=== PATIENT | male | born 1990 | race Caucasian/White ===

== ENCOUNTER 2017-10-13 12:19 | Emergency (ER) | payer OTHER ==
[2017-10-13 12:19] VITALS: BMI 39.9
[2017-10-13 13:19] VITALS: BP 126/77; PULSE 95; RESP 18; TEMP 98.8; O2SAT 100
--- NOTE | 2017-10-13 13:42 | C.PDOC ---
Time Seen by Provider: 10/13/17 13:03 Chief Complaint (Nursing): Chest Pain Past Medical History Vital Signs: Last Vital Signs Temp 98.8 F 10/13/17 13:16 Pulse 95 H 10/13/17 13:16 Resp 18 10/13/17 13:16 BP 126/77 10/13/17 13:16 Pulse Ox 100 10/13/17 13:16 - Social History Hx Tobacco Use: No Hx Alcohol Use: No Hx Substance Use: No - Immunization History Hx Tetanus Toxoid Vaccination: No Hx Influenza Vaccination: No Hx Pneumococcal Vaccination: No ED Course And Treatment O2 Sat by Pulse Oximetry: 100 Disposition - Disposition Referrals: Elijah Peterson MD [Staff Provider] - [facility] [Outside] [facility] [Outside] Disposition: AGAINST MEDICAL ADVICE Disposition Time: 13:41 Condition: UNKNOWN Additional Instructions: please follow up with your doctor/clinic and specialsit. return to er with worsening symptoms or concerns Instructions: Chest Pain, Leaving Against Medical Advice Forms: [facility] (Belarusian) Print Language: UKRAINIAN - Clinical Impression Clinical Impression: Chest pain
--- NOTE | 2017-10-13 13:46 | C.PDOC ---
History Of Present Illness 27-year-old male, presents to the emergency department with complaints of left sided intermittent chest pain that started at 09:00 this morning. Denies nausea/ vomiting, fevers, chills, or any other associated symptoms. No other complaints at this time. Time Seen by Provider: 10/13/17 13:03 Chief Complaint (Nursing): Chest Pain History Per: Patient History/Exam Limitations: no limitations Onset/Duration Of Symptoms: Hrs Current Symptoms Are (Timing): Still Present Past Medical History Reviewed: Historical Data, Nursing Documentation, Vital Signs Vital Signs: Last Vital Signs Temp 98.8 F 10/13/17 13:16 Pulse 95 H 10/13/17 13:16 Resp 18 10/13/17 13:16 BP 126/77 10/13/17 13:16 Pulse Ox 100 10/13/17 13:58 Family History: States: No Known Family Hx - Social History Hx Tobacco Use: No Hx Alcohol Use: No Hx Substance Use: No - Immunization History Hx Tetanus Toxoid Vaccination: No Hx Influenza Vaccination: No Hx Pneumococcal Vaccination: No Review Of Systems Constitutional: Negative for: Fever, Chills Cardiovascular: Positive for: Chest Pain Respiratory: Negative for: Cough, Shortness of Breath Gastrointestinal: Negative for: Nausea, Vomiting Musculoskeletal: Negative for: Neck Pain, Back Pain Skin: Negative for: Rash Neurological: Negative for: Weakness, Numbness, Headache, Dizziness Physical Exam - Physical Exam Appears: Non-toxic, No Acute Distress Skin: Normal Color, Warm, Dry, No Rash Head: Normacephalic Eye(s): bilateral: PERRL Nose: Normal Oral Mucosa: Moist Lips: Normal Appearing Neck: Normal ROM Chest: Symmetrical Cardiovascular: Rhythm Regular, No Murmur Respiratory: Normal Breath Sounds, No Accessory Muscle Use Extremity: Normal ROM, No Deformity, No Swelling Neurological/Psych: Oriented x3, Normal Speech ED Course And Treatment ECG: Interpreted By Me, Viewed By Me ECG Rhythm: Sinus Tachycardia ECG Interpretation: No Acute Changes Rate From EC O2 Sat by Pulse Oximetry: 100 (RA) Pulse Ox Interpretation: Normal Medical Decision Making Medical Decision Making: Patient is refusing any bloodwork a this time. This patient is choosing to leave against medical advice. I have personally explained to the pt that choosing to do so may result in permanent bodily harm or . I have discussed at great length that without further evaluation and monitoring there may be unforeseen circumstances and/or deterioration causing permanent bodily harm or as a result of their choice. The pt verbalized these risks back to the physician in laymans terms. The pt is alert, oriented, and shows the mental capacity to make clear decisions regarding the pts health care at this time. The pt continues to wish to leave against medical advice. In light of the pts decision to leave AMA, follow-up has been arranged and the pt is aware of the importance of following up as instructed. The pt has been advised that they should return to the ED immediately if they change their mind at any time, or if their condition begins to change or worsen in any way. Disposition - Disposition Referrals: [facility] [Outside] [facility] [Outside] Elijah Peterson MD [Staff Provider] - Disposition Time: 13:51 Condition: UNKNOWN Additional Instructions: please follow up with your doctor/clinic and specialsit. return to er with worsening symptoms or concerns Instructions: Chest Pain, Leaving Against Medical Advice Forms: [facility] (Ivorian) Print Language: JAPANESE - Clinical Impression Clinical Impression: Chest pain - Scribe Statement The provider has reviewed the documentation as recorded by the Scribe (Travis Hull) All medical record entries made by the Scribe were at my direction and personally dictated by me. I have reviewed the chart and agree that the record accurately reflects my personal performance of the history, physical exam, medical decision making, and the department course for this patient. I have also personally directed, reviewed, and agree with the discharge instructions and disposition.
--- NOTE | 2017-10-16 17:33 | CARD ---
APPROVED REPORT EKG Measurement Heart [id number] <Conclusion> Sinus tachycardia Otherwise normal ECG
== END 2017-10-13 14:05 | disposition left against medical advice (07) ==
LOC: C.ER 12:19
DX: R07.9 Chest pain, unspecified (principal)